=== PATIENT | female | born 1995 | race African-American/Black ===

== ENCOUNTER → 2017-05-14 | Outpatient (REF) | LOC: WSOH 13:16 | DX: Z02.89 Encounter for other administrative examinations (principal) ==

== ENCOUNTER → 2017-05-17 | Outpatient (REF) | LOC: WSOH 12:15 | DX: Z02.89 Encounter for other administrative examinations (principal) ==

== ENCOUNTER → 2017-05-24 | Outpatient (REF) | LOC: WSOH 12:34 | DX: Z11.1 Encounter for screening for respiratory tuberculosis (principal) ==

== ENCOUNTER → 2018-08-19 | Outpatient (REF) | LOC: WSPT 09:18 | DX: Z02.1 Encounter for pre-employment examination (principal) ==